=== PATIENT | male | born 1975 | race Caucasian/White ===

== ENCOUNTER → 2018-04-05 | Outpatient (CLI) | payer OTHER | END | disposition home or self-care (01) | LOC: LAB SHORT 19:01 → LAB EV 19:01 | DX: L03.119 Cellulitis of unspecified part of limb (principal) | CPT/HCPCS: 87070; 87075; 87147; 87205 ==

== ENCOUNTER 2018-11-13 21:52 | Emergency (ER) | payer OTHER ==
[~2018-11-13] VITALS: Ht 205.7 cm; Wt 90.7 kg
[2018-11-13] MEDS ORDERED: KETO10 PO (23:41)
== END 2018-11-13 23:58 | disposition home or self-care (01) ==
LOC: ER 21:52
DX: S93.401A Sprain of unspecified ligament of right ankle, initial encounter (principal); F17.200 Nicotine dependence, unspecified, uncomplicated; W10.9XXA Fall (on) (from) unspecified stairs and steps, initial encounter
CPT/HCPCS: 73610; 99283-25